=== PATIENT | female | born 1960 | race Caucasian/White ===

== ENCOUNTER 2023-07-17 15:49 | Emergency (ER) | payer OTHER ==
[2023-07-17 15:55] VITALS: BP 123/76; PULSE 92; RESP 18; TEMP 98.2; BMI 28.8
[2023-07-17] MEDS ORDERED: KETOROLAC TROMETHAMINE 30 MG/1 ML VIAL IM ONE (18:06)
[2023-07-17] MEDS ORDERED: LIDOCAINE 4% PATCH TP ONE ×2 (18:07→18:11)
[2023-07-17] MEDS ORDERED: KETOROLAC TROMETHAMINE 30 MG/1 ML VIAL ONE (18:11)
== END 2023-07-17 18:44 | disposition home or self-care (01) ==
LOC: JERFT 15:49
PROC: 3E0233Z Introduction of Anti-inflammatory into Muscle, Percutaneous Approach (ICD-10-PCS; principal; 2023-07-17)
DX: S46.011A Strain of muscle(s) and tendon(s) of the rotator cuff of right shoulder, initial encounter (principal); M25.511 Pain in right shoulder; W01.198A Fall on same level from slipping, tripping and stumbling with subsequent striking against other object, initial encounter; Y93.F2 Activity, caregiving, lifting
CPT/HCPCS: 73030-TC-RT-FY; 99284-25